=== PATIENT | female | born 1950 | race Caucasian/White ===

== ENCOUNTER 2024-10-29 02:58 | Inpatient (IN) | payer OTHER, MEDICARE, SELFPAY ==
[2024-10-28 21:17] VITALS: BP 170/112
--- NOTE | 2024-10-28 22:19 | ED.GENMED ---
History of Present Illness
General
Chief Complaint: Abdominal Symptoms
Time Seen by Provider: 10/28/24 21:48
History of Present Illness
History of Present Illness:
.
Past History
Past History
ED Past Medical History: GERD, HTN, Hypercholesterolemia and Hypothyroidism
ED Past Surgical History: Other (Abscess)
Social History
Personal:
Living: with family
Phy Exam
Physical Exam
Physical Exam:
GENERAL: Alert , in no apparent distress
EYE: pupils equal and reactive
NECK: Supple, no significant adenopathy.
ENT: o/p clr, mm dry
CARDIAC: Regular rate and rhythm .
LUNGS: Clear breath sounds bilaterally, no acute respiratory distress, no wheezes/rales/rhonchi
ABDOMEN: Soft, diffuse abdominal tenderness especially in upper quadrants, hyperactive bowel sounds, no r/g, no cvat
NEUROLOGICAL: Alert and oriented, no focal neuro deficits
SKIN: Warm and dry, skin intact.
MUSCULOSKELETAL: No edema, well perfused.
PSYCH: Normal and appropriate interaction.
Course
Orders/Labs/Results
Orders:
Orders
10/28/24 22:17
Cardiac Monitoring- Treatment ONCE
Urinalysis Reflex To Culture Urgent
Date Specimen was Collected: 10/29/24
Time Specimen was Collected: 03:37
0.9% Sodium Chloride 500 ml [Nss] 500 ml IV BOLUS
Morphine Sulfate 4 mg IV NOW STA
Ondansetron Injectable [Zofran] 4 mg IV NOW STA
Pulse Ox/cont/shift [RESP] Stat
Quantity: 1
10/28/24 22:18
Electrocardiogram (*1) Stat
Reason for Study: Abdominal Pain
CT Abd/pel Without Iv Or Oral Urgent
Reason For Exam: Abdominal pain nausea vomiting
EKG- Treatment ONCE
10/28/24 22:37
Complete Blood Count/No Diff Urgent
Comprehensive Metabolic Panel Urgent
Lipase Urgent
10/28/24 23:02
Morphine Sulfate 4 mg IV NOW STA
10/29/24 00:53
0.9% Sodium Chloride 1000 ml [Nss] 1,000 ml IV BOLUS
10/29/24 01:25
Lactic Acid Stat
10/29/24 02:39
Admit/Transfer Patient As Directed
Co-Sign Provider:
Level of Care: Inpatient admission
Assign to:: Medical/Surgical
Physician / Group: Claudette
Diagnosis: Small bowel obstruction
Reason for Hospitalization: small bowel obstruction
Expected length of stay greater than two midnights?: Yes
ELOS- Estimated Length of Stay in days: 2
I certify the patient meets the requirements for IP care: Yes
PRN Pain Medication Management As Directed
May give lesser potent ordered pain med per pt: Yes
preference::
Protocol:: Medication orders for pain may be administered in a
manner that supports deferring to patient preference
when the pt is:
- Requesting an ordered lesser potent pain medication.
Least to most potent pain medications are defined
as: acetaminophen < NSAID < tramadol < opioids
(morphine, oxycodone, hydromorphone).
- Requesting a lesser dose of the same medication IF
ORDERED.
- Requesting a less intrusive route of administration
if both routes are prescribed by the provider (PO <
IV).
10/29/24 02:40
Code Status As Directed
Resuscitation Status: Full Code
10/29/24 03:39
Urine Creatinine Routine
Date Specimen was Collected: 10/29/24
Time Specimen was Collected: 03:00
Comment: Completed by ER staff
Urine Sodium Routine
Date Specimen was Collected: 10/29/24
Time Specimen was Collected: 03:00
Comment: Completed by ER staff
10/29/24 03:47
Acetaminophen [Tylenol] 650 mg PO Q4HPRN PRN
HYDROmorphone [Dilaudid] 0.5 mg IV Q4HPRN PRN
Ondansetron Injectable [Zofran] 4 mg IV Q6HPRN PRN
Oxycodone [Roxicodone] 5 mg PO Q4HPRN PRN
10/29/24 03:47
SURGICAL CONSULT Routine
Consulting Provider: Noe De Jesus
Was physician already notified: Yes
Activity As Directed
Activity Level: With Assistance
Vital Signs As Directed
Frequency: Per unit guidelines
DX Deep Vein Thrombosis Video Routine
10/29/24 04:30
Sterile Water For Inj [Sterile Water For Injection 1000 ml] 1,000 ml Sodium Chloride 38.5 meq Sodium Bicarbonate 100 meq IV 100 mls/hr
10/29/24 Breakfast
NPO
Allow oral meds: Yes
Allow clear liquids: Sips of Clears
10/29/24 06:52
BMP [Basic Metabolic Panel] Routine
CBC/No Diff [Complete Blood Count/No Diff] Routine
Magnesium Routine
Phosphorus Routine
Venous Blood Gas Routine
%Oxygen/Room Air: room air
10/29/24 08:00
Heparin 5,000 units SC Q8
Abnormal Lab Results
10/28/24
22:37
WBC 4.5 L 10^3/uL
(4.8-10.8)
RBC 3.75 L 10^6/uL
(4.20-5.40)
Hgb 11.7 L g/dL
(12.0-16.0)
Hct 34.4 L %
(37.0-47.0)
MCH 31.2 H pg
(27.0-31.0)
RDW 14.9 H %
(11.5-14.5)
Chloride 114 H mmol/L
(98-107)
Carbon Dioxide 14 L* mmol/L
(22-30)
BUN 50 H mg/dl
(7-17)
Creatinine 3.3 H mg/dL
(0.6-1.0)
Glucose 114 H mg/dl
(70-99)
ALT 36 H U/L
(0-35)
10/28/24 22:37
10/28/24 22:37
Vital Signs
Initial and Last Documented VS:
Initial Vital Signs
Temp Pulse Resp BP Pulse Ox
98.4 F 90 16 170/112 99
10/28/24 21:17 10/28/24 21:17 10/28/24 21:17 10/28/24 21:17 10/28/24 21:17
Last Documented Vital Signs
Temp Pulse Resp BP Pulse Ox
97.7 F 68 16 146/81 97
10/29/24 07:20 10/29/24 07:20 10/29/24 07:20 10/29/24 07:20 10/29/24 08:00
*Pulse Oximetry
SaO2: 99
Oxygen Mode of Delivery: Room air
*Critical Care Note
Total Time (30-74mins, 75-104mins- exclusive of procedures): Not Applicable
Update Note
Update Note:
Note:
CHIEF COMPLAINT(S)
Abdominal pain and nausea.
HISTORY OF PRESENT ILLNESS
The patient is a 77-year-old female with a past medical history of hypertension, underactive thyroid, and recent pneumonia, who presents with abdominal pain and nausea. She was diagnosed with pneumonia two weeks ago at an urgent care facility and
was treated with azithromycin. The patient reports feeling well over the weekend but began experiencing severe nausea and vomiting on Friday night. Since then, she continues to feel mildly nauseous with abdominal pain primarily located above the
region where her belly button would be, noting tenderness to touch. She describes the pain as bro to 'after doing a lot of crunches.' Activity does not seem to aggravate the pain, and there is no radiating pain. She denies any fever, chills, chest
pain, shortness of breath, blood or coffee ground in the vomitus, and urinary changes. Her last bowel movement was today and normal, with no signs of blood or black stool. She has consumed cereal today and has not vomited. She reports mild
lightheadedness on arrival to the ER.
ADDITIONAL HISTORY OBTAINED FROM SOURCES OTHER THAN THE PATIENT
According to the spouse, the patient was reportedly severely nauseous and had never vomited as much as she did on Friday night.
SOCIAL DETERMINANTS AFFECTING HEALTH
The patient denies use of tobacco, alcohol, and illicit drugs.
ALLERGIES
Amoxicillin, latex.
PAST MEDICAL HISTORY
- Hypertension
- Underactive thyroid
- Recent pneumonia
PAST SURGICAL HISTORY
- Sigmoid resection
- Appendectomy
- Cholecystectomy
- Two hernia repairs
REVIEW OF SYSTEMS
- Gastrointestinal: Nausea, abdominal pain
- General: Lightheadedness
- Respiratory: Denies shortness of breath, chest pain
- Constitutional: Denies fever, chills
PHYSICAL EXAM
-
PLAN
- Initiate IV access
- Administer IV pain medication
- Administer IV fluids for rehydration
- Administer antiemetics for nausea
- CT scan of the abdomen to evaluate for potential bowel obstruction, to be performed without oral contrast if preferred
DIFFERENTIAL DIAGNOSIS
The Differential Diagnosis includes, in no particular order and is not limited to:
1. Bowel obstruction
2. Gastroenteritis
3. Gastritis
4. Peptic ulcer disease
5. Pancreatitis
6. Cholecystitis
7. Appendicitis
8. Diverticulitis
9. Hernia
10. Medication side effects
1102 Pain minimally improved. Will redose meds.
1247Am verbal report vision radiology...sbo noted, unclear where transition point is, no perf, no other abnl identified/ Pt reassessed, she is much more comfortable, no pain now, no vomiting. Will not palce NGT at this time, given no v/pain.
[place] IVF, npo, admit. Hospitalist aware via TT.
1:03 AM actual written preliminary radiology report just presented to me in addition to the verbal report that I got there is also notation that 'no evidence of pneumatosis, free air or wall thickening although no definitive signs of ischemic bowel
consider correlation with lactic acid level. Suggest surgical consultation.'. I just added on a lactic acid and will make hospitalist aware. Patient will likely receive a surgical consultation in a.m., does not have signs or symptoms to suggest
the urgency for this consultation at this time. Pending lactic result. Abdomen soft.
ED Attending Note
-
Portions of this chart may have been created with voice recognition software.� Occasional wrong word or��sound alike� substitutions may have occurred due to the inherent limitations of voice recognition software.
Discharge Plan
Departure
Patient Disposition: Admit
Date of Disposition: 10/29/24
Time of Disposition: 00:53
Presentation/result/management discussed w/ accepting MD/DO: Hospitalist
Condition: Fair
Discharge Problem:
SBO (small bowel obstruction)
Interventions
Interventions:
*Risk Screen - Suicide Last Done: 10/28/24 21:17
*General Assessment Last Done: 10/28/24 21:17
*Neglect/Abuse Screening Last Done: 10/28/24 21:17
*ED- Fall Risk Assessment Last Done: 10/28/24 21:17
*ED COVID-19 Vaccine History Last Done: 10/28/24 21:17
*Nursing Disposition Last Done: 10/29/24 03:43
RN-Mclfsw-Uhthzfqgpy Assessment Last Done: 10/28/24 22:55
Discharge Date and Time
Discharge Date/Time: 10/29/24 03:44
[2024-10-28] MEDS: NSS 500 IV (22:37)
[2024-10-28] MEDS: MORPHINE SULFATE 4 MG IV ×2 (22:39→23:36)
[2024-10-28] MEDS: ZOFRAN 4 MG IV (22:40)
[2024-10-28 22:45] LABS: Hematocrit 34.4 % (37.0-47.0); Hemoglobin 11.7 g/dL (12.0-16.0); Mean Corpuscular Hgb 31.2 pg (27.0-31.0); Mean Corpuscular Volume 91.7 fL (81.0-99.0); Mean Platelet Volume 9.5 fL (7.4-10.4); Platelet Count 299 10^3/uL (130-400); Red Blood Cell Count 3.75 10^6/uL (4.20-5.40); Red Cell Dist. Width 14.9 % (11.5-14.5); White Blood Cell Count 4.5 10^3/uL (4.8-10.8)
[2024-10-28 23:00] VITALS: BP 151/84
[2024-10-28 23:10] LABS: ALT (SGPT) 36 U/L (0-35); AST (SGOT) 32 U/L (14-36); Alkaline Phosphatase 105 U/L (38-126); Blood Urea Nitrogen 50 mg/dl (7-17); Calcium 10.2 mg/dl (8.4-10.2); Carbon Dioxide 14 mmol/L (22-30); Chloride 114 mmol/L (98-107); Glucose 114 mg/dl (70-99); Lipase 66 U/L (23-300); Potassium 4.9 mmol/L (3.5-5.1); Sodium 141 mmol/L (135-145); Total Bilirubin 0.8 mg/dl (0.2-1.3); Total Protein 7.4 g/dl (6.3-8.2); eGFR 14.11
[2024-10-29] MEDS: NSS 1000 IV (01:29)
[2024-10-29 01:54] LABS: Lactic Acid 1.1 mmol/L (0.7-2.0)
--- NOTE | 2024-10-29 02:21 | HPS.HSE ---
Family Physician
-
Family Physician: Yolie Gill
Chief Complaint
-
Abdominal pain
History of Present Illness
This is a 74-year-old past medical history of hypothyroid, hypertension and a history of CKD who has a prior history of intra-abdominal surgery presents to the emergency department with approximately 3 days of abdominal pain.
Patient reports abrupt onset of vomiting that was voluminous and continuous for approximately 36 hours. After that then the vomiting ceased but she has been having epigastric and periumbilical abdominal pain since then. She states that she has
minimal distention but she is passing gas. She is intolerant of p.o. She denies any prior episodes of similar abdominal pain. In the past she had iatrogenic large bowel perforation during colonoscopy that required emergency colectomy she has had
hernia repair since then. She is also had cholecystectomy.
She denies any fevers or chills.
Emergency Department, she was afebrile, blood pressure was 150/84 with a pulse of 90 and she was satting 99% on room air.
CBC was unremarkable.
Electrolytes notable for a bicarb of 14, chloride of 114 within normal potassium of 4.9. BUN was elevated at 50, creatinine 3.3 and glucose was normal.
CT of the abdomen pelvis without contrast showing small bowel is moderately dilated at 3.8 cm concern for high-grade small bowel obstruction, transition difficult to definitely identify but probably in the left abdomen presumed related to adhesions.
Postop changes in the small bowel. Distal small bowel is decompressed. No evidence of pneumatosis free air or wall thickening. Although no definite sign of ischemic bowel consider correlation with lactic acid level.
Medical History
Past Medical History
Past Medical History: Reports HTN and Hypothyroidism
Past Surgical History: Reports Cholecystectomy
Social History
Tobacco: Non-smoker
Alcohol: None
Drug: None
Personal:
Living: With Family
Employment: Retired
Family History
Family History: Not pertinent
Allergies / Home Medications
Allergies reflects when Allergies were last updated in [employer].
Home Medications with original date entered in [employer]
Allergy/Medication List:
Allergies
Allergy/AdvReac Type Severity Reaction Status Date / Time
adhesive Allergy TAPE-SORENE Verified 10/28/24 21:19
SS,REDNESS,
ITCHING
amoxicillin (From Augmentin) Allergy Hives Verified 10/28/24 21:19
clavulanic acid (From Allergy Hives Verified 10/28/24 21:19
Augmentin)
latex Allergy Rash Verified 10/28/24 21:19
Home Medications
Nifedipine 30 mg tablet, 30 mg p.o. daily
Levothyroxine 75 mcg tablet, 75 mcg p.o. daily
Review of Systems
-
Constitutional: Reports No Symptoms
EENT: Reports No Symptoms
Respiratory: Reports No Symptoms
Cardiac: Reports No Symptoms
Abdomen/GI: Reports Abdominal Pain
: Reports No Symptoms
Musculoskeletal: Reports No Symptoms
Skin: Reports No Symptoms
Neurological: Reports No Symptoms
Endocrine: Reports No Symptoms
Hematologic/Lymphatic: Reports No Symptoms
Psych: Reports No Symptoms
Physical Exam
Vital Signs
Vital Signs
Temp Pulse Resp BP Pulse Ox
98.4 F 90 16 151/84 99
10/28/24 21:17 10/28/24 21:17 10/28/24 21:17 10/28/24 23:00 10/29/24 01:30
Physical Exam
General: Well Developed, Well Nourished and No Apparent Distress
HEENT: NormoCephalic, Moist mucous membranes and Atraumatic
Respiratory: Clear
Cardiac: S1/S2 and Regular Rhythm; No Murmur or Rub
GI: Soft, Non Tender, Non Distended and Normal Bowel Sounds; No Organomegaly
Rectal: Deferred by Provider
Musculoskeletal: No Clubbing, No Cyanosis and No Edema
Skin: No Rash
Neuro: Nonfocal/grossly intact
Psych: Calm
Laboratory Results
-
10/28/24 22:37
10/28/24 22:37
Laboratory Results
Lactic Acid 1.1 mmol/L (0.7-2.0) 10/29/24 01:25
Total Bilirubin 0.8 mg/dl (0.2-1.3) 10/28/24 22:37
AST 32 U/L (14-36) 10/28/24 22:37
ALT 36 U/L (0-35) H 10/28/24 22:37
Alkaline Phosphatase 105 U/L (38-126) 10/28/24 22:37
Lipase 66 U/L (23-300) 10/28/24 22:37
Data Reviewed
-
CT Scan: Report Reviewed by me
Lab Data: Labs Reviewed by me
Old Records: Reviewed
Impression/Plan
-
IMPRESSION:
74-year-old female with abdominal pain found to have small bowel obstruction.
PLAN:
Small bowel obstruction�is likely on the basis of adhesions, patient is nontoxic-appearing, hemodynamically stable afebrile, she has not vomited in 3 days and she is passing gas. Negative lactic acid level. She has active bowel sounds.
� Admit to MedSurg
- N.p.o. for now except meds
- IV fluids
- Pain control and antiemetic
- Patient is reticent about NG tube at this time and given presentation can hold off on NG tube unless she has intractable pain or vomiting
- Surgery consultation
CRISTINA -likely dehydration, no obstruction on CT scan
-IV fluid resuscitation
- Obtain recent chemistries from PMD
-Consider nephrology consult if no improvement in a.m.
Metabolic acidosis -mostly nongap acidosis
-Will give IV bicarb for now
Hypertension
- Continue nifedipine 30 mg p.o. daily with all parameters
Hypothyroid
- Continue levothyroxine 75 mcg p.o.
DVT prophylaxis�heparin subcu
CODE STATUS�full code
[2024-10-29 03:55] VITALS: BP 151/99; BMI 29.6
[2024-10-29 04:18] LABS: Urine Albumin 2+ (Neg - Trace); Urine Bilirubin Negative (Negative); Urine Character Clear (Clear); Urine Color Amber; Urine Glucose Negative (Negative); Urine Ketone Negative (Negative); Urine Leukocyte Negative (Negative); Urine Nitrite Negative (Negative); Urine Occult Blood Negative (Negative); Urine Urobilinogen Negative (Neg - 1+)
--- NOTE | 2024-10-29 04:20 | PTCARENOTE ---
Pt. received to 2S from ER via stretcher and able to ambulate to room bed with steady gait and no assistance. Pt. in NAD, even and unlabored breathing on RA, BP elevated but otherwise VSS. Bed locked and in lowest position, side rails in place, call
light within reach, and questions addressed at time of assessment.
[2024-10-29 05:39] LABS: Urine Mucus Moderate; Urine Squamous Cell >30 /LPF (Few)
[2024-10-29 05:40] LABS: Urine Red Blood Cell None Seen /HPF (0-2)
[2024-10-29 05:41] LABS: Urine Bacteria Few (Negative)
[2024-10-29] MEDS: SODIUM CHLORIDE 1109.625 MEQ IV ×4 (05:47→17:59)
[2024-10-29 06:58] LABS: Urine Sodium 40 mmol/L (30-90)
[2024-10-29 07:02] LABS: Venous Blood Gas B.E. -8.2 mmol/L (-4 to +4); Venous Blood Gas HCO3 18.4 mmol/L (22-27); Venous Blood Gas O2 Sat % 80.1 %; Venous Blood Gas pCO2 41 mmHg (35-48); Venous Blood Gas pH 7.26 (7.32-7.43); Venous Blood Gas pO2 48 mmHg (30-50)
[2024-10-29 07:04] LABS: Venous Blood Gas O2 Therapy room air
--- NOTE | 2024-10-29 07:15 | CON.GS ---
Consultation
-
Date/Time Consultation Requested: See order
Date/Time Consultation Performed: See time stamp
Medical History
-
Chief Complaint: Abdominal pain, nausea, emesis
History of Present Illness:
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
hernia s/p ex lap sigmoid colon resection and SBR x2 and incisional hernia repair with XenMatrix intraperitoneal mesh and Phasix onlay mesh in 11/2014, and s/p laparoscopic cholecystectomy in 09/2018 (all procedures by Dr. Slade). She states that
her symptoms began this past Friday (10/25). She reports multiple episodes of nausea and vomiting. She reports crampy abdominal pain. Currently she has some discomfort in her periumbilical and epigastric region. She continues to pass flatus.
Her last bowel movement was a normal nonbloody bowel movement yesterday. She denies any prior issues with bowel obstructions. She has had no hospitalizations since 2019. She denies any more mild symptoms of increased bloating, nausea, or
constipation. No clear dietary indiscretion causing her symptoms. No fevers or chills.
Past Medical History
Past Medical History: HTN, Hypothyroidism and Renal Failure
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
with mesh at time of her sigmoid resection)
Social History
Tobacco: Non-Smoker
Alcohol: None
Drug: None
Family History
Family History: Reviewed & Not Pertinent
Allergies / Home Medications
Allergy/AdvReac Type Severity Reaction Status Date / Time
adhesive Allergy TAPE-SORENE Verified 10/29/24 04:23
SS,REDNESS,
ITCHING
amoxicillin (From Augmentin) Allergy Hives Verified 10/29/24 04:23
clavulanic acid (From Allergy Hives Verified 10/29/24 04:23
Augmentin)
latex Allergy Rash Verified 10/29/24 04:23
�Medication �Instructions �Recorded �Confirmed �Type
omeprazole 20 mg capsule,delayed 20 mg PO PRN PRN acid reflux 12/23/17 10/29/24 History
release
acetaminophen 325 mg tablet 650 mg (2 x 325 mg) PO Q4HPRN PRN 09/29/18 10/29/24 Rx
mild to moderate pain #0 tabs
levothyroxine 75 mcg tablet 75 mcg PO DAILY 10/29/24 10/29/24 History
nifedipine 30 mg tablet,extended 30 mg PO DAILY 10/29/24 10/29/24 History
release
Review of Systems
-
A 10 point review of systems was completed, and was negative except as per HPI.
Physical Exam
Vital Signs
Temp Pulse Resp BP Pulse Ox
98.0 F 97 16 151/99 98
10/29/24 03:55 10/29/24 03:55 10/29/24 03:55 10/29/24 03:55 10/29/24 03:55
10/28/24 10/29/24 10/30/24
06:59 06:59 06:59
Actual Weight 78.154 kg
Body Mass Index (BMI) 29.6
Lab Results
WBC 4.5 10^3/uL (4.8-10.8) L 10/28/24 22:37
Hgb 11.7 g/dL (12.0-16.0) L 10/28/24 22:37
Hct 34.4 % (37.0-47.0) L 10/28/24 22:37
Plt Count 299 10^3/uL (130-400) 10/28/24 22:37
Physical Exam
General: Well Developed, Well Nourished and No Apparent Distress
HEENT: Normocephalic and Anicteric
Respiratory: Non Labored Respirations
Cardiac: Regular Rhythm
GI: Soft, Tender (Mild periumbilical and epigastric), Distended (Mild), Incisions (Well healed), Obese and Other (Non-peritoneal)
Musculoskeletal: No Edema
Skin: Warm and Dry
Neuro: Nonfocal/Grossly Intact
Data Reviewed
-
CT Scan: Image Personally Visualized and interpreted
Labs: Labs Reviewed by me
Assessment / Plan
-
Patient is a 74 yo F p/w partial SBO related to adhesions
The natural history and pathophysiology of bowel obstructions was reviewed. CT scan imaging was reviewed. Several areas of dilated small bowel with no clear and obvious transition point, however, appears to have some hang up within the LUQ at her
prior SBR and the greatest transition and area of inflammation within the LLQ around the area of her sigmoid colon resection. No evidence of pneumatosis or free air. No mesenteric swirling or concern for volvulus. Clinically patient does not have
acute abdomen necessitating more urgent surgical intervention. In fact, she appears quite comfortable without NGT decompression and continues to pass flatus indicative of a more partial bowel obstruction. Recommend continued medical management.
Discussed the utility of a SBFT for diagnostic and therapeutic purposes. Ms. Call states that she has difficulties tolerating oral contrast due to a 'poor gag reflex'. If unable to tolerate a SBFT then would recommend continued medical management
with bowel rest and IV fluids. She appears to be quite dehydrated with a significantly elevated creatinine. All questions answered.
-- SBFT if patient amendable and able to tolerate, if unable then possible trial of clears later this afternoon if improved
-- NPO and IVF for now pending the above
-- NGT if further episodes of nausea or emesis
-- Correct lytes, minimize narcotics
-- OOB/ambulate
[2024-10-29 07:16] LABS: Hematocrit 32.7 % (37.0-47.0); Hemoglobin 10.6 g/dL (12.0-16.0); Mean Corp Hgb Conc. 32.4 g/dL (33.0-37.0); Mean Corpuscular Hgb 30.5 pg (27.0-31.0); Mean Corpuscular Volume 94.2 fL (81.0-99.0); Mean Platelet Volume 9.9 fL (7.4-10.4); Platelet Count 295 10^3/uL (130-400); Red Blood Cell Count 3.47 10^6/uL (4.20-5.40); Red Cell Dist. Width 15.1 % (11.5-14.5)
[2024-10-29 07:20] VITALS: BP 146/81
[2024-10-29 07:42] LABS: Blood Urea Nitrogen 50 mg/dl (7-17); Calcium 9.2 mg/dl (8.4-10.2); Carbon Dioxide 15 mmol/L (22-30); Chloride 115 mmol/L (98-107); Estimated Creatinine Clearance 16 ml/min; Glucose 99 mg/dl (70-99); Magnesium 1.1 mg/dl (1.6-2.3); Phosphorus 4.1 mg/dl (2.5-4.5); Potassium 4.7 mmol/L (3.5-5.1); Sodium 142 mmol/L (135-145); eGFR 14.64
[2024-10-29] MEDS: MAGNESIUM SULFATE 100 IV (08:45)
[2024-10-29] MEDS: HEPARIN 5000 UNITS SC ×3 (08:51→23:47)
--- NOTE | 2024-10-29 09:14 | W.PN.HOSP.TC ---
Addendum entered and electronically signed by Chilo Loyola MD 10/29/24 16:12:
#Hypomagnesemia
Replete by IV, recheck in the a.m.
Original Note:
Today's Communication/Plan
-
see bold
Assessment / Plan
Assessment / Plan
HPI: 4-year-old past medical history of hypothyroid, hypertension and a history of CKD who has a prior history of intra-abdominal surgery presents to the emergency department with approximately 3 days of abdominal pain.
Patient reports abrupt onset of vomiting that was voluminous and continuous for approximately 36 hours. After that then the vomiting ceased but she has been having epigastric and periumbilical abdominal pain since then. She states that she has
minimal distention but she is passing gas. She is intolerant of p.o. She denies any prior episodes of similar abdominal pain. In the past she had iatrogenic large bowel perforation during colonoscopy that required emergency colectomy she has had
hernia repair since then. She is also had cholecystectomy.
Small bowel obstruction
� Likely on the basis of adhesions, patient is nontoxic-appearing, hemodynamically stable afebrile, she has not vomited in 3 days and she is passing gas. Negative lactic acid level. She has active bowel sounds.
� Patient declined NG tube placement in the ER
� Appreciate general surgery input, continue n.p.o., IV fluids, SBFT if patient is able to tolerate
� If unable to tolerate SBP, possible trial of clears in the afternoon if improved
� Out of bed ambulate
CRISTINA -likely dehydration, no obstruction on CT scan
-Continue IV fluids, trend creatinine, no nephrotoxic drugs/NSAIDs
-Obtain recent chemistries from PMD
-Consider nephrology consult if no improvement with IVFs
Gastroesophageal reflux disease
-Resume PPI
Metabolic acidosis -mostly nongap acidosis
-Continue IV bicarb for now
Hypertension
- Continue nifedipine 30 mg p.o. daily with all parameters
Hypothyroid
- Continue levothyroxine 75 mcg p.o.
DVT prophylaxis�heparin subcu
CODE STATUS�full code
Total time spent to see the patient on the floor, examine the patient, review data and lab results, discuss treatment plan with patient, nursing staff around 38 minutes.
Physical Exam
General: No acute distress
HEENT: Normocephalic, Atraumatic, EOMI, MMM
Respiratory: Clear to Auscultation bilaterally
Cardiac: Normal S1/S2, Regular Rate and Rhythm
GI: Soft, Nontender, Nondistended, Normal Bowel Sounds
Extremities: No Clubbing, Cyanosis, or Edema
Neuro: Nonfocal/Grossly Intact
Psych: Calm, Cooperative
Derm: No Visible lesions
Anticipated Discharge: 24 - 48 hours
Subjective/Interval History
-
Date of Service: October 29, 2024
Patient reports her abdominal pain has improved dramatically. She is passing gas. Her last bowel movement was prior to admission. No fever, no vomiting.
Objective Data
-
Labs:
Laboratory Results
10/28/24 10/29/24
22:37 06:52
WBC 4.5 L 4.0 L
Hgb 11.7 L 10.6 L
Hct 34.4 L 32.7 L
Plt Count 299 295
Sodium 141 142
Potassium 4.9 4.7
Chloride 114 H 115 H
Carbon Dioxide 14 L* 15 L
BUN 50 H 50 H
Creatinine 3.3 H 3.2 H
Glucose 114 H 99
Calcium 10.2 9.2
Total Bilirubin 0.8
AST 32
ALT 36 H
Alkaline Phosphatase 105
Vital Signs:
Vital Signs
Temp Pulse Resp BP Pulse Ox
97.7 F 68 16 146/81 97
10/29/24 07:20 10/29/24 07:20 10/29/24 07:20 10/29/24 07:20 10/29/24 07:20
--- NOTE | 2024-10-29 10:38 | CM ---
Reviewed the chart notes and spoke with the patient and her spouse at the bedside. The patient resides with spouse in a split level home with one step to enter. The patient has a rolling walker in home, but does not currently use. The patient has
had [facility] in past and been to [facility] in past. The patient confirmed her pharmacy of choice is [email or web address]. CM continues to be available to patient/family and is monitoring medical plan for needs at discharge.
Plan: Discharge to home when medically stable. No needs identified at this time.
[2024-10-29 15:20] VITALS: BP 139/86
[2024-10-29] MEDS: MAGNESIUM SULFATE 50 IV (16:37)
[2024-10-29] MEDS: SODIUM BICARBONATE 1300 MG PO ×2 (16:43→21:01)
[2024-10-29] MEDS: PROTONIX IV 40 MG IV (16:44)
[2024-10-29] MEDS: NSS (PRESERVATIVE FREE) 10 ML IV (16:44)
[2024-10-29 23:15] VITALS: BP 171/84
[2024-10-30] MEDS: SODIUM CHLORIDE 1109.625 MEQ IV ×2 (05:29)
[2024-10-30] MEDS: SYNTHROID 75 MCG PO (05:29)
[2024-10-30 06:10] LABS: % Basophils 0.3 % (0-2); % Eosinophils 3.7 % (0-6); % Immature Granulocytes 0.3 % (0-0.5); % Lymphocytes 25.2 % (20.5-51.1); % Monocytes 13.8 % (1.7-9.3); % Neutrophils 56.7 % (42.2-75.2); Absolute Eosinophils 0.1 10^3/uL (0-0.7); Absolute Lymphocytes 0.8 10^3/uL (1.2-3.4); Absolute Monocytes 0.5 10^3/uL (0.1-0.6); Absolute Neutrophils 1.9 10^3/uL (1.4-6.5); Hematocrit 28.6 % (37.0-47.0); Hemoglobin 9.4 g/dL (12.0-16.0); Mean Corp Hgb Conc. 32.9 g/dL (33.0-37.0); Mean Corpuscular Hgb 30.3 pg (27.0-31.0); Mean Corpuscular Volume 92.3 fL (81.0-99.0); Nucleated Red Blood Cells % 0 %; Platelet Count 265 10^3/uL (130-400); Red Cell Dist. Width 14.6 % (11.5-14.5); White Blood Cell Count 3.3 10^3/uL (4.8-10.8)
[2024-10-30 06:41] LABS: Blood Urea Nitrogen 47 mg/dl (7-17); Calcium 8.8 mg/dl (8.4-10.2); Carbon Dioxide 23 mmol/L (22-30); Chloride 108 mmol/L (98-107); Estimated Creatinine Clearance 18 ml/min; Glucose 85 mg/dl (70-99); Potassium 4.2 mmol/L (3.5-5.1); Sodium 139 mmol/L (135-145); eGFR 17.18
--- NOTE | 2024-10-30 06:59 | W.PN.HOSP.TC ---
Today's Communication/Plan
-
Diet as per Surgery
d/c bicarb supplementation, no longer necessary
cont IVF hydration
Possible discharge tomorrow pending further improvement in renal function
Assessment / Plan
Assessment / Plan
Physical Exam
General: No acute distress
HEENT: Normocephalic, Atraumatic, EOMI, MMM
Respiratory: Clear to Auscultation bilaterally
Cardiac: Normal S1/S2, Regular Rate and Rhythm
GI: Soft, Nontender, Nondistended, Normal Bowel Sounds
Extremities: No Clubbing, Cyanosis, or Edema
Neuro: Nonfocal/Grossly Intact
Psych: Calm, Cooperative
Derm: No Visible lesions
HPI: 74F hypothyroid, hypertension and a history of CKD who has a prior history of intra-abdominal surgery presents to the emergency department with approximately 3 days of abdominal pain. Patient reports abrupt onset of vomiting that was
voluminous and continuous for approximately 36 hours. After that then the vomiting ceased but she has been having epigastric and periumbilical abdominal pain since then. She states that she has minimal distention but she is passing gas. She is
intolerant of p.o. She denies any prior episodes of similar abdominal pain. In the past she had iatrogenic large bowel perforation during colonoscopy that required emergency colectomy she has had hernia repair since then. She is also had
cholecystectomy.
Small bowel obstruction
� Likely on the basis of adhesions, patient is nontoxic-appearing, hemodynamically stable afebrile, she has not vomited in 3 days and she is passing gas. Negative lactic acid level. She has active bowel sounds.
� Patient declined NG tube placement in the ER
- Tolerated clear liquid diet and having bowel movements
� Appreciate general surgery input, diet advanced to Low residue
� Out of bed ambulate
CRISTINA -likely dehydration, no obstruction on CT scan
-Continue IV fluids, trend creatinine, no nephrotoxic drugs/NSAIDs
Gastroesophageal reflux disease
-cont PPI
Metabolic acidosis -mostly nongap acidosis
resolved
-bicarb supplementation discontinued
Hypertension
- Continue nifedipine 30 mg p.o. daily with all parameters
Hypothyroid
- Continue levothyroxine 75 mcg p.o.
DVT prophylaxis�heparin subcu
CODE STATUS�full code
Total time spent to see the patient on the floor, examine the patient, review data and lab results, discuss treatment plan with patient, nursing staff around 40 minutes.
Anticipated Discharge: Within 24 hours
Subjective/Interval History
-
Date of Service: October 30, 2024
Seen and examined at bedside in no acute distress resting comfortably in bed. Overall reports feeling well. Tolerating clear liquid diet. Reports bowel movements. Denies new acute issues at this time.
Objective Data
-
Labs:
Laboratory Results
10/30/24
05:49
WBC 3.3 L
Hgb 9.4 L
Hct 28.6 L
Plt Count 265
Sodium 139
Potassium 4.2
Chloride 108 H
Carbon Dioxide 23
BUN 47 H
Creatinine 2.8 H
Glucose 85
Calcium 8.8
Vital Signs:
Vital Signs
Temp Pulse Resp BP Pulse Ox
97.7 F 81 16 171/84 93
10/29/24 23:15 10/29/24 23:15 10/29/24 23:15 10/29/24 23:15 10/29/24 23:15
I&O
10/28/24 10/29/24 10/30/24
06:59 06:59 06:59
Intake Total 2619 / 2619
Balance 2619 / 2619
[2024-10-30 07:00] VITALS: BP 151/92
[2024-10-30] MEDS: NSS (PRESERVATIVE FREE) 10 ML IV (08:16)
[2024-10-30] MEDS: HEPARIN 5000 UNITS SC ×3 (08:16→23:25)
[2024-10-30] MEDS: PROTONIX IV 40 MG IV (08:16)
[2024-10-30] MEDS: SODIUM BICARBONATE 1300 MG PO (08:16)
[2024-10-30] MEDS: PROCARDIA XL (EXTENDED RELEASE) 30 MG PO (08:17)
--- NOTE | 2024-10-30 09:21 | W.PN.GS2 ---
Today's Communication / Plan
-
Advance diet
Assessment / Plan
-
74 yo female with extensive surgical history presenting with pSBO likely d/t adhesions and prerenal CRISTINA
AFVSS
Labs stable, renal function improving with hydration
Passing flatus/stools and tolerating clears
--Advance to low residue diet
--IVF as per primary team
--Clear for d/c from surgical standpoint once tolerating diet
Subjective Data
-
Date of Service: October 30, 2024
Patient seen and examined at bedside with Dr. Castro. Denies n/v. Tolerating clears. Passing flatus and some stools. Denies pain.
Objective Data
-
Intake and Output
10/29/24 10/30/24 10/31/24
06:59 06:59 06:59
Intake Total 2620 / 2620
Balance 2620 / 2620
Intake:
Oral fluids 120 / 120
IV fluids (Total) 2400 / 2400
IV piggybacks 100 / 100
Other:
Number of approximated MODERATE 2
amounts of urine
Number of approximated LARGE 1
amounts of urine
Vital Signs
Temp Pulse Resp BP Pulse Ox
97.9 F 79 14 151/92 98
10/30/24 07:00 10/30/24 08:17 10/30/24 07:00 10/30/24 08:17 10/30/24 07:00
Lab Results
10/30/24 05:49
10/30/24 05:49
Calcium 8.8 mg/dl (8.4-10.2) 10/30/24 05:49
Phosphorus 4.1 mg/dl (2.5-4.5) 10/29/24 06:52
Magnesium 2.0 mg/dl (1.6-2.3) 10/30/24 05:49
Total Bilirubin 0.8 mg/dl (0.2-1.3) 10/28/24 22:37
AST 32 U/L (14-36) 10/28/24 22:37
ALT 36 U/L (0-35) H 10/28/24 22:37
Alkaline Phosphatase 105 U/L (38-126) 10/28/24 22:37
Total Protein 7.4 g/dl (6.3-8.2) 10/28/24 22:37
Albumin 4.0 g/dl (3.5-5.0) 10/28/24 22:37
Physical Exam
-
NAD
ABD softly distended, ND, [employer]AD
[2024-10-30] MEDS: LR 1000 IV ×2 (12:09→22:44)
[2024-10-30 14:52] VITALS: BP 149/88; PULSE 80; O2SAT 98
[2024-10-30 15:00] VITALS: BP 124/78
[2024-10-30] MEDS: ROXICODONE 5 MG PO (19:41)
[2024-10-30] MEDS: TYLENOL 650 MG PO (22:50)
[2024-10-30 23:20] VITALS: BP 151/91
[2024-10-31] MEDS: ROXICODONE 5 MG PO ×2 (00:28→16:34)
[2024-10-31] MEDS: TYLENOL 650 MG PO (04:27)
[2024-10-31 05:46] LABS: Hematocrit 29.8 % (37.0-47.0); Hemoglobin 9.8 g/dL (12.0-16.0); Mean Corp Hgb Conc. 32.9 g/dL (33.0-37.0); Mean Corpuscular Volume 91.1 fL (81.0-99.0); Mean Platelet Volume 10.1 fL (7.4-10.4); Platelet Count 287 10^3/uL (130-400); Red Blood Cell Count 3.27 10^6/uL (4.20-5.40); Red Cell Dist. Width 14.7 % (11.5-14.5); White Blood Cell Count 3.7 10^3/uL (4.8-10.8)
[2024-10-31] MEDS: SYNTHROID 75 MCG PO (05:56)
[2024-10-31 06:17] LABS: Blood Urea Nitrogen 43 mg/dl (7-17); Calcium 8.8 mg/dl (8.4-10.2); Carbon Dioxide 19 mmol/L (22-30); Chloride 108 mmol/L (98-107); Estimated Creatinine Clearance 20 ml/min; Glucose 88 mg/dl (70-99); Potassium 4.1 mmol/L (3.5-5.1); Sodium 139 mmol/L (135-145); eGFR 19.69
--- NOTE | 2024-10-31 07:02 | W.PN.HOSP.TC ---
Today's Communication/Plan
-
cont IVF hydration
monitor renal function
blood pressure control
pain control
diet as per surgery
Nephro eval
Bladder renal US
Assessment / Plan
Assessment / Plan
Physical Exam
General: No acute distress, appears comfortable at rest
HEENT: Normocephalic, Atraumatic, EOMI, MMM
Respiratory: Clear to Auscultation bilaterally
Cardiac: Normal S1/S2, Regular Rate and Rhythm
GI: Soft, mild tenderness, distended, Normal Bowel Sounds
Extremities: No Clubbing, Cyanosis, or Edema
Neuro: AOx3 conversant coherent
Psych: Calm, Cooperative
HPI: 74F hypothyroid, hypertension and a history of CKD who has a prior history of intra-abdominal surgery presents to the emergency department with approximately 3 days of abdominal pain. Patient reports abrupt onset of vomiting that was
voluminous and continuous for approximately 36 hours. After that then the vomiting ceased but she has been having epigastric and periumbilical abdominal pain since then. She states that she has minimal distention but she is passing gas. She is
intolerant of p.o. She denies any prior episodes of similar abdominal pain. In the past she had iatrogenic large bowel perforation during colonoscopy that required emergency colectomy she has had hernia repair since then. She also had
cholecystectomy.
Small bowel obstruction
� Likely on the basis of adhesions, patient is nontoxic-appearing, hemodynamically stable afebrile, she has not vomited in 3 days and she is passing gas. Negative lactic acid level. She has active bowel sounds.
� Patient declined NG tube placement in the ER
- Tolerated clear liquid diet and having bowel movements
� Appreciate general surgery input, diet advanced to Low residue tolerating though appetite is poor
� Out of bed ambulate
CRISTINA -likely dehydration, no obstruction on CT scan
-Continue IV fluids, trend creatinine, no nephrotoxic drugs/NSAIDs
-Nephro eval requested, Cr improving but slowly with IVF
-check bladder renal US
Gastroesophageal reflux disease
-cont PPI
Metabolic acidosis -mostly nongap acidosis
improved with bicarb supplementation since discontinued
cont to monitor
Hypertension
- Continue nifedipine 30 mg p.o. daily with holding parameters
- monitor and titrate antihypertensive regimen as necessary.
Hypothyroid
- Continue levothyroxine 75 mcg p.o.
DVT prophylaxis�heparin subcu
CODE STATUS�full code
Total time spent to see the patient on the floor, examine the patient, review data and lab results, discuss treatment plan with patient, nursing staff around 40 minutes.
Anticipated Discharge: 24 - 48 hours
Subjective/Interval History
-
Date of Service: October 31, 2024
Endorses poor appetite. Abd pain overnight responded well to prn oxycodone. Endorses regular bowel movements and flatus. Otherwise no acute distress. Resting comfortably in bed.
Objective Data
-
Labs:
Laboratory Results
10/31/24
04:45
WBC 3.7 L
Hgb 9.8 L
Hct 29.8 L
Plt Count 287
Sodium 139
Potassium 4.1
Chloride 108 H
Carbon Dioxide 19 L
BUN 43 H
Creatinine 2.5 H
Glucose 88
Calcium 8.8
Vital Signs:
Vital Signs
Temp Pulse Resp BP Pulse Ox
98.9 F 94 17 151/91 96
10/30/24 23:20 10/30/24 23:20 10/30/24 23:20 10/30/24 23:20 10/30/24 23:20
I&O
10/30/24 10/31/24 11/01/24
06:59 06:59 06:59
Intake Total 2619 / 0 2039
Balance 2619 / 2620 2039
[2024-10-31] MEDS: HEPARIN 5000 UNITS SC ×3 (07:47→23:47)
[2024-10-31] MEDS: LR 1000 IV ×2 (07:48→22:45)
[2024-10-31] MEDS: NSS (PRESERVATIVE FREE) 10 ML IV (07:48)
[2024-10-31] MEDS: PROTONIX IV 40 MG IV (07:49)
[2024-10-31 07:50] VITALS: BP 157/86
[2024-10-31] MEDS: PROCARDIA XL (EXTENDED RELEASE) 30 MG PO (07:57)
--- NOTE | 2024-10-31 09:39 | W.PN.GS2 ---
Today's Communication / Plan
-
abd xr
Assessment / Plan
-
74 yo female with extensive surgical history presenting with pSBO likely d/t adhesions and prerenal CRISTINA
AFVSS
Labs stable, renal function improving with hydration
Passing flatus/stools and tolerating LRD
--Continue low residue diet
--Check ABD XR given persistent distention
--IVF as per primary team
--Final dispo as per primary team
Subjective Data
-
Date of Service: October 31, 2024
Patient seen and examined at bedside with Dr. Philip. Weiss n/v. Some bloating persists. Passing gas and had a BM. Eating small amounts.
Objective Data
-
Intake and Output
10/30/24 10/31/24 11/01/24
06:59 06:59 06:59
Intake Total 2620 / 2620 2039 / 2039
Balance 2620 / 2620 2039 / 2039
Intake:
Oral fluids 120 / 120 840 / 840
IV fluids (Total) 2400 / 2400 1200 / 1200
IV piggybacks 100 / 100
Other:
Number of approximated MODERATE 2 2
amounts of urine
Number of approximated LARGE 1
amounts of urine
Vital Signs
Temp Pulse Resp BP Pulse Ox
97.6 F 74 16 157/86 96
10/31/24 07:50 10/31/24 07:57 10/31/24 07:50 10/31/24 07:57 10/31/24 07:50
Lab Results
10/31/24 04:45
10/31/24 04:45
Calcium 8.8 mg/dl (8.4-10.2) 10/31/24 04:45
Phosphorus 4.1 mg/dl (2.5-4.5) 10/29/24 06:52
Magnesium 2.0 mg/dl (1.6-2.3) 10/30/24 05:49
Total Bilirubin 0.8 mg/dl (0.2-1.3) 10/28/24 22:37
AST 32 U/L (14-36) 10/28/24 22:37
ALT 36 U/L (0-35) H 10/28/24 22:37
Alkaline Phosphatase 105 U/L (38-126) 10/28/24 22:37
Total Protein 7.4 g/dl (6.3-8.2) 10/28/24 22:37
Albumin 4.0 g/dl (3.5-5.0) 10/28/24 22:37
Physical Exam
-
NAD
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
--- NOTE | 2024-10-31 12:20 | W.CON.NEPH ---
Consultation
-
Date/Time Consultation Requested: 10/31/24 1034
Date/Time Consultation Performed: 10/31/24 1220
Requesting Provider: Mayte Hsu
Performing Provider: Tianna Pollock
Reason for Consultation: CRISTINA
Medical History
-
Chief Complaint: Abd pain
History of Present Illness:
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
of abdominal pain on 10/28. She noted to have SBO and started supportive care. She noted to have cr 3.3, met acidosis bicarb of 14 and improving to cr2.5, bicarb 19 today with IVF.
She seem to have higher cr in the past and recommended to see nephro but pt not seen anyone so far. Her cr trend increasing since 2019 1.2 to 1.8 by 2020 and 2.3 in 02/2024. She was taking NSAIDs before which she stopped taking while ago. No dysuria
or recent UTIs.
No CP or sob. no n/v currently. Abd pain improving. has 3bM so far.
Past Medical History
HTN
HYpothyroidism
GERD
Sciatica
Kidney stone
Osteoarthritis
Cecal perforation status post surgery
Past Surgical History: Other ( expiratory laparotomy, sigmoid resection, left nephrectomy, incisional hernia repair with mesh in December 2014, Right knee replacement laparoscopic cholecystectomy thousand 19)
Social History
Tobacco: Non-Smoker
Alcohol: None
Drug: None
Personal:
Living: With Family
Employment: Retired
Family History
not pertinent, no CKD
Allergies / Home Medications
Allergy/AdvReac Type Severity Reaction Status Date / Time
adhesive Allergy TAPE-SORENE Verified 10/29/24 04:23
SS,REDNESS,
ITCHING
amoxicillin (From Augmentin) Allergy Hives Verified 10/29/24 04:23
clavulanic acid (From Allergy Hives Verified 10/29/24 04:23
Augmentin)
latex Allergy Rash Verified 10/29/24 04:23
�Medication �Instructions �Recorded �Confirmed �Type
omeprazole 20 mg capsule,delayed 20 mg PO PRN PRN acid reflux 12/23/17 10/29/24 History
release
acetaminophen 325 mg tablet 650 mg (2 x 325 mg) PO Q4HPRN PRN 09/29/18 10/29/24 Rx
mild to moderate pain #0 tabs
levothyroxine 75 mcg tablet 75 mcg PO DAILY 10/29/24 10/29/24 History
nifedipine 30 mg tablet,extended 30 mg PO DAILY 10/29/24 10/29/24 History
release
Review of Systems
-
All other systems: Negative unless noted
Physical Exam
Vital Signs
Vital Signs
Temp Pulse Resp BP Pulse Ox
97.6 F 74 16 157/86 96
10/31/24 07:50 10/31/24 07:57 10/31/24 07:50 10/31/24 07:57 10/31/24 07:50
Lab Results
WBC 3.7 10^3/uL (4.8-10.8) L 10/31/24 04:45
RBC 3.27 10^6/uL (4.20-5.40) L 10/31/24 04:45
Hgb 9.8 g/dL (12.0-16.0) L 10/31/24 04:45
Hct 29.8 % (37.0-47.0) L 10/31/24 04:45
Plt Count 287 10^3/uL (130-400) 10/31/24 04:45
Sodium 139 mmol/L (135-145) 10/31/24 04:45
Potassium 4.1 mmol/L (3.5-5.1) 10/31/24 04:45
Chloride 108 mmol/L (98-107) H 10/31/24 04:45
Carbon Dioxide 19 mmol/L (22-30) L 10/31/24 04:45
BUN 43 mg/dl (7-17) H 10/31/24 04:45
Creatinine 2.5 mg/dL (0.6-1.0) H 10/31/24 04:45
eGFR 19.69 10/31/24 04:45
Glucose 88 mg/dl (70-99) 10/31/24 04:45
Calcium 8.8 mg/dl (8.4-10.2) 10/31/24 04:45
Phosphorus 4.1 mg/dl (2.5-4.5) 10/29/24 06:52
Albumin 4.0 g/dl (3.5-5.0) 10/28/24 22:37
Physical Exam
General: Awake, Alert, Oriented and AOx3
HEENT: EOMI, Anicteric, Conjunctivae Clear, Ear/Nose Intact, Facial Symmetry and Neck Supple
Respiratory: Clear, Normal Excursion and Nonlabored Respirations
Cardiac: S1/S2 and Regular Rate/Rhythm
Breast: Deferred by me
Abdomen: Soft, Nontender and Nondistended
Musculoskeletal: No Cyanosis and No Edema
Skin: No Rash
Neuro: Nonfocal/Grossly Intact
Psych: Mood/afflect pleasant, Insight/judgement good and Appropriate
Data Reviewed
-
Labs: Labs Reviewed by me and Discussed with Patient
Assessment/Plan
-
IMP:
Small bowel obstruction
CRISTINA with CKD stage 3b vs 4-last cr 2.3 in 02/2024, prior cr 1.9 2021
Gastroesophageal reflux disease
Metabolic acidosis nongap
Hypertension
Hypothyroidism
hypomagnesemia
Plan:
a/w abd pain, SBO
CRISTINA with CKD-cr improving to 2.5 with IVF
last cr 2.3 in 02/2024, 1.9 in 2021, cr high since 2019-reviewed [facility]
once po intake is better d/c IVF
UA was bland but 2+alb, check U PCR,
renal US noted MRD changes and 2.6cm complex left kidney cyst -need out pt f/u
Bp high, just back on CCB 10/29, titrate if needed
met acidosis-monitor
check mg level again as she is on PPI
avoid nephrotoxins
she will need f/u with nephro out pt
labs in am
[2024-10-31 15:45] VITALS: BP 153/85
[2024-10-31 19:59] LABS: Protein/creatinine Ratio 0.3; Urine Protein 23 mg/dl
[2024-10-31 23:05] VITALS: BP 149/89
[2024-11-01] MEDS: LR 1000 IV (05:11)
[2024-11-01] MEDS: TYLENOL 650 MG PO (05:15)
[2024-11-01] MEDS: SYNTHROID 75 MCG PO (05:58)
[2024-11-01 06:16] LABS: Hematocrit 30.6 % (37.0-47.0); Hemoglobin 10.1 g/dL (12.0-16.0); Mean Corpuscular Hgb 30.4 pg (27.0-31.0); Mean Corpuscular Volume 92.2 fL (81.0-99.0); Mean Platelet Volume 10.1 fL (7.4-10.4); Platelet Count 280 10^3/uL (130-400); Red Blood Cell Count 3.32 10^6/uL (4.20-5.40); Red Cell Dist. Width 14.5 % (11.5-14.5); White Blood Cell Count 3.5 10^3/uL (4.8-10.8)
[2024-11-01 06:49] LABS: Blood Urea Nitrogen 33 mg/dl (7-17); Carbon Dioxide 20 mmol/L (22-30); Chloride 110 mmol/L (98-107); Estimated Creatinine Clearance 23 ml/min; Glucose 96 mg/dl (70-99); Magnesium 1.4 mg/dl (1.6-2.3); Phosphorus 3.1 mg/dl (2.5-4.5); Sodium 140 mmol/L (135-145); eGFR 22.95
[2024-11-01 07:25] VITALS: BP 186/101
--- NOTE | 2024-11-01 07:25 | W.PN.HOSP.TC ---
Addendum entered and electronically signed by Mayte Bullock MD 11/01/24 13:29:
Hypomagnesemia
-repleted
Original Note:
Today's Communication/Plan
-
discharge
Assessment / Plan
Assessment / Plan
Physical Exam
General: No acute distress, appears comfortable, ambulating without issues or need for assist device
HEENT: Normocephalic, Atraumatic, EOMI, MMM
Respiratory: Clear to Auscultation bilaterally
Cardiac: Normal S1/S2, Regular Rate and Rhythm
GI: Soft, mild tenderness, non-distended, Normal Bowel Sounds
Extremities: No Clubbing, Cyanosis, or Edema
Neuro: AOx3 conversant coherent
Psych: Calm, Cooperative
74F hypothyroid, HTN CKD hx intra-abdominal surgery p/w approx 3 days abd pain. Patient reported abrupt onset vomiting voluminous and continuous for approx 36H. After vomiting stopped, she had persistent epigastric and periumbilical abdominal
pain. Reported passing gas. Intolerant PO. Denied prior episodes similar abd pain. In the past she had iatrogenic large bowel perforation during colonoscopy that required emergency colectomy. Also has hx hernia repair and cholecystectomy.
Small bowel obstruction
� Likely 2/2 adhesions. Negative lactic acid level.
� Patient declined NG tube placement in the ER
� Appreciate general surgery input, diet gradually advanced to Low residue tolerating
CRISTINA -likely dehydration, no urinary obstruction noted on CT scan
-Nephro eval appreciated
-likely underlying chronic kidney disease III-IV, initial Cr 3.3 since improved to 2.2
-Bladder Renal US appreciated medical renal disease slightly complex renal cyst 2.6 cm Lt [place]
Gastroesophageal reflux disease
-cont PPI
Metabolic acidosis
improved with bicarb supplementation since discontinued
Continue outpt follow up with primary and nephro
Hypertension
- Continue nifedipine 30 mg p.o. daily with holding parameters
- Reports previously attempted 60 mg daily with her cloud security architect but was unable to tolerate d/t lower ext's swelling
- Low dose Hydralazine 10 mg BID started
- discussed with patient to keep daily log bp at home to review with primary, cardiology, or nephrology in follow up for further titration antihypertensive regimen as necessary
Hypothyroid
- Continue levothyroxine 75 mcg p.o.
DVT prophylaxis�heparin subcu
CODE STATUS�full code
Medically stable for discharge home with outpatient follow up recommendations.
Total Time Preparing Discharge _40__ minutes including examination of the patient, summary of the hospital stay, instructions for continuing care to all relevant caregivers; and preparation of discharge records, prescriptions, and referral forms if
necessary.
Anticipated Discharge: Today
Subjective/Interval History
-
Date of Service: November 01, 2024
No acute distress. Ambulatory without issues or need for assist device. overall reports feeling well. Denies new acute issues at this time.
Objective Data
-
Labs:
Laboratory Results
11/01/24
05:43
WBC 3.5 L
Hgb 10.1 L
Hct 30.6 L
Plt Count 280
Sodium 140
Potassium 4.0
Chloride 110 H
Carbon Dioxide 20 L
BUN 33 H
Creatinine 2.2 H
Glucose 96
Calcium 9.0
Vital Signs:
Vital Signs
Temp Pulse Resp BP Pulse Ox
99.4 F 87 17 149/89 97
10/31/24 23:05 10/31/24 23:05 10/31/24 23:05 10/31/24 23:05 10/31/24 23:05
I&O
10/31/24 11/01/24 11/02/24
06:59 06:59 06:59
Intake Total 2039 3140 / 3140
Balance 2039 3140 / 3140
[2024-11-01] MEDS: PROCARDIA XL (EXTENDED RELEASE) 30 MG PO (08:01)
[2024-11-01] MEDS: HEPARIN 5000 UNITS SC (08:06)
[2024-11-01] MEDS: NSS (PRESERVATIVE FREE) 10 ML IV (08:07)
[2024-11-01] MEDS: PROTONIX IV 40 MG IV (08:07)
[2024-11-01] MEDS: MAGNESIUM SULFATE 100 IV (09:43)
[2024-11-01] MEDS: APRESOLINE 10 MG PO (09:45)
--- NOTE | 2024-11-01 10:02 | W.PN.GS2 ---
Addendum entered and electronically signed by Jaime Castro MD 11/01/24 10:21:
I saw and examined the patient independently.
The Claims Agent Right Of Way's note was reviewed and I agree with the note, assessment and plan except where noted below.
Comment: This is a 74-year-old female with extensive surgical history who presented with a partial small bowel obstruction likely adhesive and prerenal CRISTINA both improving well.
Continue low residue diet.
Dispo Per primary, cleared for DC from a surgical standpoint.
Patient to follow-up with Dr. Slade as an outpatient as needed.
Original Note:
Today's Communication / Plan
-
dispo planning
Assessment / Plan
-
74 yo female with extensive surgical history presenting with pSBO likely d/t adhesions and prerenal CRISTINA
AFVSS
Labs stable, renal function improving with hydration
Passing flatus/stools and tolerating LRD
XR with some residual bowel distention but improved from prior
--Continue low residue diet
--Final dispo as per primary team, clear for d/c from surgical standpoint
Subjective Data
-
Date of Service: November 01, 2024
Patient seen and examined at bedside with Dr. Castro. Denies n/v. Tolerating diet. Eating small amounts. Passing gas/stools. Denies abdominal pain.
Objective Data
-
Intake and Output
10/31/24 11/01/24 11/02/24
06:59 06:59 06:59
Intake Total 2039 3140 / 3140 410 / 410
Balance 2039 3140 / 3140 410 / 410
Intake:
Oral fluids 840 / 840 840 / 840 310 / 310
IV fluids (Total) 1200 / 1200 2300 / 2300
IV piggybacks 100 / 100
Other:
Number of approximated MODERATE 2 3 2
amounts of urine
Vital Signs
Temp Pulse Resp BP Pulse Ox
98.0 F 84 16 186/101 98
11/01/24 07:25 11/01/24 07:25 11/01/24 07:25 11/01/24 09:45 11/01/24 07:25
Lab Results
11/01/24 05:43
11/01/24 05:43
Calcium 9.0 mg/dl (8.4-10.2) 11/01/24 05:43
Phosphorus 3.1 mg/dl (2.5-4.5) 11/01/24 05:43
Magnesium 1.4 mg/dl (1.6-2.3) L 11/01/24 05:43
Total Bilirubin 0.8 mg/dl (0.2-1.3) 10/28/24 22:37
AST 32 U/L (14-36) 10/28/24 22:37
ALT 36 U/L (0-35) H 10/28/24 22:37
Alkaline Phosphatase 105 U/L (38-126) 10/28/24 22:37
Total Protein 7.4 g/dl (6.3-8.2) 10/28/24 22:37
Albumin 4.0 g/dl (3.5-5.0) 10/28/24 22:37
Physical Exam
-
NAD
ABD soft, minimally distended, [employer]
[2024-11-01 12:14] VITALS: BP 148/86
--- NOTE | 2024-11-01 12:15 | CM ---
Reviewed the chart notes and spoke with the patient at the bedside. IMM reviewed. Patient anticipates being discharged to home today. Patient's spouse will provide transportation. CM continues to be available to patient/family and is monitoring
medical plan for needs at discharge.
Plan: Discharge to home when medically stable. No needs anticipated at this time.
--- NOTE | 2024-11-01 12:39 | W.PN.NEPH.PH ---
Today's Communication / Plan
-
Okay for discharge from renal standpoint follow-up in 2 to 4 weeks with renal
Assessment/Plan
-
IMP:
Small bowel obstruction
CRISTINA with CKD stage 3b vs 4-last cr 2.3 in 02/2024, prior cr 1.9 2021
Gastroesophageal reflux disease
Metabolic acidosis nongap
Hypertension
Hypothyroidism
hypomagnesemia
Plan:
a/w abd pain, SBO
CRISTINA with CKD-cr improving
last cr 2.3 in 02/2024, 1.9 in 2021, cr high since 2019-reviewed [facility]
UA was bland but 2+alb, check U PCR,
renal US noted MRD changes and 2.6cm complex left kidney cyst -need out pt f/u
Creatinine continues to improve
Okay for discharge from renal standpoint follow-up with us in 2 to 4 weeks
-
-
Date of Service: November 01, 2024
CC / HPI / ROS
-
No chest pain or shortness of breath
Labs
-
Labs:
WBC 3.5 10^3/uL (4.8-10.8) L 11/01/24 05:43
RBC 3.32 10^6/uL (4.20-5.40) L 11/01/24 05:43
Hgb 10.1 g/dL (12.0-16.0) L 11/01/24 05:43
Hct 30.6 % (37.0-47.0) L 11/01/24 05:43
Plt Count 280 10^3/uL (130-400) 11/01/24 05:43
Sodium 140 mmol/L (135-145) 11/01/24 05:43
Potassium 4.0 mmol/L (3.5-5.1) 11/01/24 05:43
Chloride 110 mmol/L (98-107) H 11/01/24 05:43
Carbon Dioxide 20 mmol/L (22-30) L 11/01/24 05:43
BUN 33 mg/dl (7-17) H 11/01/24 05:43
Creatinine 2.2 mg/dL (0.6-1.0) H 11/01/24 05:43
eGFR 22.95 11/01/24 05:43
Glucose 96 mg/dl (70-99) 11/01/24 05:43
Calcium 9.0 mg/dl (8.4-10.2) 11/01/24 05:43
Phosphorus 3.1 mg/dl (2.5-4.5) 11/01/24 05:43
Albumin 4.0 g/dl (3.5-5.0) 10/28/24 22:37
Physical Exam
-
Vital Signs:
Vital Signs
Temp Pulse Resp BP Pulse Ox
98.0 F 84 16 148/86 98
11/01/24 07:25 11/01/24 12:14 11/01/24 07:25 11/01/24 12:14 11/01/24 07:25
Respiratory:: Bilateral: CTA
Lung Excursion:: Normal
Abdomen:: Soft
Bowel Sounds:: Normal
Extremity Edema:: None: Bilateral:
--- NOTE | 2024-11-01 13:52 | W.DCSUMMARY ---
Discharge Summary
Discharge Data
Date of Admission: 10/29/24
Date of Discharge: 11/01/24
-
Pending Results: No
Discharge Plan
-
Patient Disposition: Home (Routine Discharge)
Discharge Diagnosis/Procedures: Small bowel obstruction
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
Gastroesophageal reflux disease
Metabolic acidosis
Hypertension
Hypothyroid
Hypomagnesemia
Slightly Complex Left Renal Cyst 2.6 cm lower pole
Condition: Fair
Diet: Low Residue
Additional Diets: Continue low residue diet for now. Follow up with surgeon and/or primary care provider for further diet recommendations.
Activity: As tolerated
Driving Restrictions: Avoid driving when taking oxycodone
Bathing Restrictions: None
Blood Work: Repeat CBC CMP and Magnesium level with primary care provider in 1 week of discharge
Activity Restrictions/Additional Instructions:
Follow up with primary care provider in 1 week of discharge. In 2-4 weeks of discharge, follow up with surgeon, nephrology, and Cardiology.
Oxycodone has been prescribed as needed for moderate to severe pain.
Hydralazine has been prescribed for better control hypertension. Keep a daily log of your blood pressures at home to review with your primary care provider, clerk rating, and/or geometry tutor in follow up for further evaluation/treatment high blood
pressure. Portable blood pressure monitoring devices are available for purchase at your nearby pharmacy store.
Please take medications as prescribed/recommended and follow up with primary care provider and/or other healthcare provider involved in your care for refills and/or further adjustment to your medication regimen as necessary.
Referrals:
Caleb Brambila MD [Active, Cardiology] - in two to four weeks
Juliano Slade MD [Active, Surgical] - in two to four weeks
Yolie Gill DO [Family Provider, [facility]] - in one week
Tianna Ramirez MD [Active, Nephrology] - in two to four weeks
Prescriptions:
New
hydralazine 10 mg Tablet
10 mg PO BID Qty: 60 0RF
oxycodone 5 mg Tablet
5 mg PO BIDPRN PRN (Reason: moderate severe pain) Qty: 6 0RF
Continued
omeprazole 20 MG capsule,delayed release(DR/EC)
20 mg PO PRN PRN (Reason: acid reflux)
Patient Comments:
States she takes 1-3 times a week PRN
acetaminophen 325 MG tablet
650 mg PO Q4HPRN PRN (Reason: mild to moderate pain) Qty: 0 0RF
nifedipine 30 mg Tablet Extended Release
30 mg PO DAILY
levothyroxine 75 mcg Tablet
75 mcg PO DAILY
Discharge Orders:
Discharge Patient (As Directed); Ordered 11/01/24
Ordered By: Mayte Bullock
Discharge Date and Time
Print Language: DANISH
[2024-11-01 14:23] VITALS: BP 132/75
== END 2024-11-01 15:23 | disposition home or self-care (01) | DRG 389 ==
LOC: 2 SOUTH 02:58
PROVIDERS: Registered Nurse; ADMITTING PHYSICIAN Internal Medicine; ATTENDING PHYSICIAN Internal Medicine; CONSULT PHYSICIAN Internal Medicine; CONSULT PHYSICIAN Surgery; EMERGENCY PHYSICIAN Emergency Medicine; FAMILY PHYSICIAN Family Medicine
DX: K56.51 Intestinal adhesions [bands], with partial obstruction (principal); E87.20 Acidosis, unspecified; N17.9 Acute kidney failure, unspecified; N18.4 Chronic kidney disease, stage 4 (severe); E03.9 Hypothyroidism, unspecified; E78.00 Pure hypercholesterolemia, unspecified; I12.9 Hypertensive chronic kidney disease with stage 1 through stage 4 chronic kidney disease, or unspecified chronic kidney disease; E86.0 Dehydration; K21.9 Gastro-esophageal reflux disease without esophagitis; M19.90 Unspecified osteoarthritis, unspecified site; E83.42 Hypomagnesemia; N28.1 Cyst of kidney, acquired; M54.30 Sciatica, unspecified side; Z96.651 Presence of right artificial knee joint; Z87.01 Personal history of pneumonia (recurrent); Z90.49 Acquired absence of other specified parts of digestive tract; Z88.1 Allergy status to other antibiotic agents; Z91.040 Latex allergy status; Z88.0 Allergy status to penicillin; Z91.048 Other nonmedicinal substance allergy status; Z79.890 Hormone replacement therapy; Z87.442 Personal history of urinary calculi; Z90.5 Acquired absence of kidney
CPT/HCPCS: 74018; 74176; 76770; 80048; 80053; 81003; 81015; 82570; 82805; 83605; 83690; 83735; 84100; 84156; 84300; 85025; 85027; 93005; 94760; 96361; 96374; 96375; 96376; 97162; 99285